=== PATIENT | female | born 1975 | race Asian ===

== ENCOUNTER 2021-05-23 17:05 | Inpatient (IN) | payer OTHER, SELFPAY ==
[~2021-05-23] VITALS: Ht 167.6 cm; Wt 81.6 kg
[2021-05-23 17:19] VITALS: BP_SYST 150
[2021-05-23] MEDS ORDERED: MAG HYDROX/AL HYDROX/SIMETH 30 ML, DICYCLOMINE HCL 20 MG, LIDOCAINE VISCOUS 2% 15ML (PO... PO ONE ×3 (19:15)
[2021-05-23] MEDS ORDERED: ONDANSETRON HCL 4 MG/2 ML VIAL IVP ONE (19:15)
[2021-05-23 19:20] LABS: CALCIUM 8.5 mg/dL (8.4-11.0); CREATININE 0.5 mg/dL (0.55-1.30); POTASSIUM 3.8 mmol/L (3.5-5.1)
[2021-05-23 19:22] LABS: HEMATOCRIT 42.5 % (36-48); HEMOGLOBIN 14.9 g/dL (12.0-16.0); MEAN CORPUSCULAR HEMOGLOBIN 33 pg (27-31); MEAN CORPUSCULAR HGB CONC 35 % (32-36); MEAN CORPUSCULAR VOLUME 94 fL (79.0-98.0); PLATELET COUNT (AUTO) 519 K/uL (130-430); RED BLOOD CELL COUNT(AUTO) 4.52 MIL/uL (4.2-6.2); RED CELL DISTRIBUTION WIDTH 16.5 % (9.0-15.0); WHITE BLOOD COUNT (AUTO) 18.1 K/uL (4.8-10.8)
[2021-05-23 19:26] LABS: ALBUMIN 4.1 g/dL (3.4-4.8); TOTAL BILIRUBIN 0.5 mg/dL (0.0-1.0)
[2021-05-23] MEDS ORDERED: NACL 0.9% 1,000 ML IV ONE (19:30)
[2021-05-23 19:31] LABS: BILIRUBIN,URINE NEGATIVE (NEGATIVE); BLOOD, URINE NEGATIVE (NEGATIVE); CLARITY/URINE CLEAR (CLEAR); COLOR,URINE YELLOW (YELLOW); GLUCOSE,URINE 2+ (NEGATIVE); KETONES,URINE 3+ (NEGATIVE); LEUKOCYTE ESTERASE ,URINE NEGATIVE (NEGATIVE); NITRITE, URINE NEGATIVE (NEGATIVE); PH,URINE 7.5 (5.0-8.0); PROTEIN URINE 1+ (NEGATIVE); UROBILINOGEN,URINE 0.2 (0.2-1.0)
[2021-05-23 19:41] LABS: BACTERIA,URINE FEW /HPF (None Seen); RBC,URINE 0-3 /HPF (0-3); WBC,URINE NONE SEEN /HPF (0-3)
[2021-05-23] MEDS ORDERED: ANT30 PO ×2 (20:08)
[2021-05-23] MEDS ORDERED: ONDA-8 TL ×2 (20:08)
[2021-05-23] MEDS ORDERED: DICY10CA13 PO ×2 (20:08)
[2021-05-23] MEDS ORDERED: OMEP40CA20 PO ×2 (20:08)
[2021-05-23 20:09] LABS: BAND % (MANUAL) 5 % (0-6); BASOPHILS % (MANUAL) 0 % (0-2); EOSINOPHILS % (MANUAL) 0 % (0-7); LYMPHOCYTES % (MANUAL) 6 % (20-46); MONOCYTES % (MANUAL) 2 % (0-11)
[2021-05-23] MEDS ORDERED: MORPHINE 4 MG INJ. 4 MG/ML VIAL IVP ONE ×2 (20:15→22:00)
[2021-05-23] MEDS ORDERED: KETOROLAC TROMETHAMINE 30 MG VIAL IVP ONE (21:00)
[2021-05-23] MEDS ORDERED: D5/0.45 NS 1,000 ML IV ONE (22:45)
[2021-05-23] MEDS ORDERED: ONDANSETRON HCL 4 MG/2 ML VIAL ONE (22:55)
[2021-05-23] MEDS ORDERED: MORPHINE 4 MG INJ. 4 MG/ML VIAL ONE (22:56)
[2021-05-23] MEDS: MORPHINE 4 MG INJ. 4 MG/ML VIAL IVP PRN (23:51)
[2021-05-23] MEDS: ONDANSETRON HCL 4 MG/2 ML VIAL IVP PRN (23:52)
[2021-05-24 00:43] VITALS: BP_SYST 144
[2021-05-24] MEDS: D5/0.45 NS 1,000 ML IV SCH ×3 (02:25→22:54)
[2021-05-24] MEDS: MORPHINE 4 MG INJ. 4 MG/ML VIAL IVP PRN (05:10)
[2021-05-24] MEDS: ONDANSETRON HCL 4 MG/2 ML VIAL IVP PRN (05:11)
[2021-05-24 08:01] VITALS: BP_SYST 104
[2021-05-24] MEDS ORDERED: LORazepam 2 MG/ML VIAL IVP PRN (10:30)
[2021-05-24 12:02] VITALS: BP_SYST 109
[2021-05-24] MEDS: MORPHINE 2 MG/ML INJ. SYRINGE IVP PRN ×2 (12:11→22:57)
[2021-05-24] MEDS ORDERED: GLUCOSE (DEXTROSE) ORAL GEL -Adults PO PRN (13:30)
[2021-05-24] MEDS ORDERED: DEXTROSE 50%-WATER 50 ML DISP.SYRIN IVP PRN (13:30)
[2021-05-24] MEDS ORDERED: D5W 1,000 ML IV PRN (13:30)
[2021-05-24 16:13] VITALS: BP_SYST 113
[2021-05-24] MEDS: INSULIN REGULAR, HUMAN 100 UNITS/ML, 10 ML VIAL (humuLIN R) SUBCUT PRN ×2 (17:35→23:51)
[2021-05-24 20:30] VITALS: BP_SYST 116
[2021-05-25 00:40] VITALS: BP_SYST 118
[2021-05-25] MEDS: MORPHINE 4 MG INJ. 4 MG/ML VIAL IVP PRN (03:03)
[2021-05-25 06:57] LABS: BASOPHILS % (AUTO) 0.2 % (0.0-2.0); EOSINOPHILS # (AUTO) 0.1 K/uL (0.0-0.4); EOSINOPHILS % (AUTO) 1.1 % (0.0-4.0); HEMATOCRIT 36.4 % (36-48); HEMOGLOBIN 12.5 g/dL (12.0-16.0); LYMPHOCYTES # (AUTO) 1.3 K/uL (1.0-5.5); LYMPHOCYTES % (AUTO) 13.1 % (20.5-51.5); MEAN CORPUSCULAR HEMOGLOBIN 30 pg (27-31); MEAN CORPUSCULAR HGB CONC 34 % (32-36); MEAN CORPUSCULAR VOLUME 88 fL (79.0-98.0); MONOCYTES # (AUTO) 0.4 K/uL (0.0-1.0); MONOCYTES % (AUTO) 4.6 % (1.7-9.3); NEUTROPHILS # (AUTO) 7.8 K/uL (1.8-7.7); PLATELET COUNT (AUTO) 272 K/uL (130-430); RED BLOOD CELL COUNT(AUTO) 4.15 MIL/uL (4.2-6.2); RED CELL DISTRIBUTION WIDTH 12.9 % (9.0-15.0); WHITE BLOOD COUNT (AUTO) 9.6 K/uL (4.8-10.8)
[2021-05-25] MEDS: D5/0.45 NS 1,000 ML IV SCH ×2 (07:30→09:38)
[2021-05-25 08:00] VITALS: BP_SYST 114
[2021-05-25 08:25] LABS: ALBUMIN 2.8 g/dL (3.4-4.8); CALCIUM 7.5 mg/dL (8.4-11.0); CREATININE 0.52 mg/dL (0.55-1.30); PHOSPHORUS 1.7 mg/dL (2.7-4.5); POTASSIUM 3.1 mmol/L (3.5-5.1); TOTAL BILIRUBIN 0.5 mg/dL (0.0-1.0)
[2021-05-25] MEDS: INSULIN REGULAR, HUMAN 100 UNITS/ML, 10 ML VIAL (humuLIN R) SUBCUT PRN (11:24)
[2021-05-25 12:19] VITALS: BP_SYST 115
[2021-05-25] MEDS ORDERED: K PHOS 15 MM in NS 250 ML IV ONE (13:45)
[2021-05-25 15:39] VITALS: BP_SYST 113
[2021-05-25 16:00] VITALS: BP_SYST 113
== END 2021-05-25 19:15 | disposition home or self-care (01) | DRG 439 ==
LOC: SED 17:05 → SMU 22:41
PROVIDERS: ADMIT Preventive Medicine Preventive Medicine/Occupational Environmental Medicine; ATTEND Preventive Medicine Preventive Medicine/Occupational Environmental Medicine
DX: K85.90 Acute pancreatitis without necrosis or infection, unspecified (principal); E44.0 Moderate protein-calorie malnutrition; R65.10 Systemic inflammatory response syndrome (SIRS) of non-infectious origin without acute organ dysfunction; E87.5 Hyperkalemia; D72.829 Elevated white blood cell count, unspecified; D75.839 Thrombocytosis, unspecified; E78.1 Pure hyperglyceridemia; E83.52 Hypercalcemia; E83.39 Other disorders of phosphorus metabolism; E88.09 Other disorders of plasma-protein metabolism, not elsewhere classified; Z20.822 Contact with and (suspected) exposure to COVID-19; Z68.29 Body mass index [BMI] 29.0-29.9, adult
CPT/HCPCS: 36415; 76376; 76700-TC; 80053; 81000; 82150; 82962; 83036; 83690; 83735; 84100; 84478; 85007; 85025; 85027; 96361; 96374; 96375; 96376; 99285; J1885; J2001; J2270; J2405; J7050; Q9967